=== PATIENT | male | born 1990 | race Caucasian/White ===

== ENCOUNTER 2020-11-30 03:31 | Emergency (ER) | payer BC, OTHER ==
[2020-11-30 03:37] VITALS: BP 145/89; PULSE 81; RESP 18; TEMP 97.9
[2020-11-30] MEDS ORDERED: SULFAMETHOX-TMP 800-160MG 1 EACH TAB PO STA (04:24)
[2020-11-30] MEDS ORDERED: AZITHROMYCIN 500 MG TAB PO STA (04:24)
[2020-11-30] MEDS ORDERED: cefTRIAXone 250 MG VIAL IM STA (04:24)
[2020-11-30] MEDS ORDERED: CIPROFLOXACIN HCL 500 MG TAB PO STA (04:24)
--- NOTE | 2020-11-30 04:26 | ED ---
Skin/Abscess/FB HPI - General Chief complaint: Skin/Abscess/Foreign Body Stated complaint: Wounds on arms Time Seen by Provider: 11/30/20 04:06 Source: patient, RN notes reviewed, old records reviewed Mode of arrival: ambulatory Limitations: no limitations - History of Present Illness MD complaint: rash, abscess/boil -: days(s) Tetanus Up to Date: yes Location: generalized Severity: severe Severity scale (1-10): 10 Quality: stabbing, aching Consistency: constant Improves with: none Worsens with: none Context: recent illness Associated symptoms: fever, chills, rigors Treatments Prior to Arrival: none - Related Data Previous Rx's Medication Instructions Recorded Ciprofloxacin HCl [Cipro] 500 mg PO Q12HR #20 tablet 11/30/20 Sulfamethox-Tmp 800-160Mg [Bactrim 2 tab PO BID #40 tab 11/30/20 DS 800-160 mg] Allergies Allergy/AdvReac Type Severity Reaction Status Date / Time tramadol AdvReac Vomiting Verified 11/30/20 03:37 Review of Systems ROS Statement: Those systems with pertinent positive or pertinent negative responses have been documented in the HPI. ROS Other: All systems not noted in ROS Statement are negative. Past Medical History Past Medical History: No Reported History History of Any Multi-Drug Resistant Organisms: None Reported Past Surgical History: Adenoidectomy, Appendectomy, Ear Surgery, Tonsillectomy Past Psychological History: ADD/ADHD Smoking Status: Current every day smoker Past Alcohol Use History: Occasional General Exam Limitations: no limitations General appearance: alert, in no apparent distress Head exam: Present: atraumatic, normocephalic, normal inspection Eye exam: Present: normal appearance, PERRL, EOMI. Absent: scleral icterus, conjunctival injection, periorbital swelling ENT exam: Present: normal exam, mucous membranes moist Neck exam: Present: normal inspection. Absent: tenderness, meningismus, lymphadenopathy Respiratory exam: Present: normal lung sounds bilaterally. Absent: respiratory distress, wheezes, rales, rhonchi, stridor Cardiovascular Exam: Present: regular rate, normal rhythm, normal heart sounds. Absent: systolic murmur, diastolic murmur, rubs, gallop, clicks GI/Abdominal exam: Present: soft, normal bowel sounds. Absent: distended, tenderness, guarding, rebound, rigid Extremities exam: Present: normal inspection, full ROM, normal capillary refill. Absent: tenderness, pedal edema, joint swelling, calf tenderness Back exam: Present: normal inspection Neurological exam: Present: alert, oriented X3, CN II-XII intact Psychiatric exam: Present: normal affect, normal mood Skin exam: Present: warm, dry, intact, normal color. Absent: rash Course Vital Signs 11/30/20 03:32 Temperature 97.9 F Pulse Rate 81 Respiratory 18 Rate Blood Pressure 145/89 O2 Sat by Pulse 98 Oximetry - Reevaluation(s) Reevaluation #1: Medical record is reviewed Patient symptoms are significantly improved here in the emergency department Patient family informed of results, questions answered Disposition Clinical Impression: Cellulitis, Wound infection Instructions (If sedation given, give patient instructions): Cellulitis (ED) Prescriptions: Sulfamethox-Tmp 800-160Mg [Bactrim DS 800-160 mg] 2 tab PO BID #40 tab Ciprofloxacin HCl [Cipro] 500 mg PO Q12HR #20 tablet Is patient prescribed a controlled substance at d/c from ED?: No Referrals: None,Stated [Primary Care Provider] - 1-2 days
== END 2020-11-30 04:45 ==
LOC: EC 03:31
DX: L03.114 Cellulitis of left upper limb (principal); L03.113 Cellulitis of right upper limb; F90.9 Attention-deficit hyperactivity disorder, unspecified type; F17.200 Nicotine dependence, unspecified, uncomplicated
CPT/HCPCS: 99282; 96372; J0696

== ENCOUNTER 2025-01-22 00:23 | Emergency (ER) | payer BC, OTHER ==
[2025-01-22] MEDS: MORPHINE SULFATE 4 MG/ML SYRINGE IVP STA (01:01)
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
[2025-01-22] MEDS: ONDANSETRON 4 MG/2 ML VIAL IVP STA (01:03)
[2025-01-22 01:34] LABS: INR 0.9 (<1.2); Prothrombin Time 10.2 sec (10.0-12.5)
[2025-01-22 01:40] VITALS: RESP 18
[2025-01-22 01:40] LABS: ALT 30 U/L (4-49); AST 47 U/L (17-59); African American GFR (CKD) >90 (>60 ml/min/1.73 sqM); Albumin 4.5 g/dL (3.5-5.0); Alkaline Phosphatase 121 U/L (38-126); Anion Gap 14 mmol/L; Blood Urea Nitrogen 21 mg/dL (9-20); Calcium 9.4 mg/dL (8.4-10.2); Carbon Dioxide 21 mmol/L (22-30); Chloride 104 mmol/L (98-107); Glucose 131 mg/dL (74-99); Non-African American GFR(CKD) 88 (>60 ml/min/1.73 sqM); Potassium 3.9 mmol/L (3.5-5.1); Sodium 139 mmol/L (137-145); Total Bilirubin 0.5 mg/dL (0.2-1.3); Total Protein 7.2 g/dL (6.3-8.2)
--- NOTE | 2025-01-22 01:50 | CT ---
EXAM: CT Head Without Intravenous Contrast CLINICAL HISTORY: ITS.REASON CT Reason: fall TECHNIQUE: Axial computed tomography images of the head/brain without intravenous contrast. CTDI is 45.2 mGy and DLP is 1088 mGy-cm. This CT exam was performed using one or more of the following dose reduction techniques: automated exposure control, adjustment of the mA and/or kV according to patient size, and/or use of iterative reconstruction technique. COMPARISON: No previous studies. FINDINGS: Brain: Unremarkable. No hemorrhage. No significant white matter disease. No abnormal extra-axial collection is noted. Midline shift: Midline anatomy is unremarkable. Ventricles: Unremarkable. No ventriculomegaly. Bones/joints: Calvarium is unremarkable. No acute fracture. Soft tissues: Unremarkable. Sinuses: Mild to moderate chronic ethmoid and maxillary sinusitis. Mastoid air cells: Partial opacification of mastoid air cells. Other findings: Age appropriate changes. IMPRESSION: 1. Chronic sinusitis. 2. Age-related changes. 3. No acute intracranial pathology. 4. If there is concern for etiology such as early acute lacunar infarcts, MRI imaging of the brain with diffusion-weighted sequences should be performed. EXAM: CT Cervical Spine Without Intravenous Contrast CLINICAL HISTORY: ITS.REASON CT Reason: fall TECHNIQUE: Axial computed tomography images of the cervical spine without intravenous contrast. CTDI is 12.8 mGy and DLP is 323.2 mGy-cm. This CT exam was performed using one or more of the following dose reduction techniques: automated exposure control, adjustment of the mA and/or kV according to patient size, and/or use of iterative reconstruction technique. COMPARISON: No previous studies. FINDINGS: Vertebrae: Cervical and visualized thoracic vertebral bodies are maintained in height. Spinous processes are unremarkable. There is a normal relationship of C1 and C2. Transaxial images of the cervical spine reveals mild posterior facet hypertrophy and disc osteophyte complexes. No acute fracture. Normal alignment of the cervical spine. Discs/spinal canal/neural foramina: Mild to moderate degenerative disc disease, most notably at the C5-6 level. No spinal canal stenosis. Soft tissues: Unremarkable. Lung apices: Minimal scarring is noted at the lung apices. Mild COPD. Paraspinal and regional soft tissues are unremarkable. IMPRESSION: 1. Degenerative disc disease. 2. No acute injury to the cervical spine.
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
[2025-01-22 02:01] LABS: Basophils # (A) 0.06 10*3/uL (0.00-0.10); Basophils % (A) 0.4 %; Eosinophils # (A) 0.06 10*3/uL (0.04-0.35); Eosinophils % (A) 0.4 %; HCT 40.5 % (39.6-50.0); HGB 14.1 g/dL (13.0-17.0); Lymphocytes # (A) 5.35 10*3/uL (0.90-5.00); MCH 30.7 pg (27.0-32.0); MCHC 34.8 g/dL (32.0-37.0); MCV 88.2 fL (80.0-97.0); Mean Platelet Volume 10.7 fL (9.5-12.2); Monocytes # (A) 0.85 10*3/uL (0.20-1.00); Monocytes % (A) 6.3 %; Neutrophils % (A) 52.4 %; Platelet Count 303 10*3/uL (140-440); RBC 4.59 10*6/uL (4.40-5.60); RDW 12.7 % (11.5-14.5); WBC 13.39 10*3/uL (4.50-10.00)
[2025-01-22] MEDS: ACET/COD 300 MG/30 MG STARTER PACK 6 TAB BTL PO STA (02:31)
[2025-01-22] MEDS: KETOROLAC 15 MG/ML 1 ML VIAL IVP STA (02:32)
[2025-01-22 02:44] VITALS: BP 116/82; PULSE 98; TEMP 98.7
[2025-01-22 03:06] LABS: RBC Morphology Normal
== END 2025-01-22 02:44 | disposition home or self-care (01) ==
LOC: EC 00:23
DX: S42.101A Fracture of unspecified part of scapula, right shoulder, initial encounter for closed fracture (principal); F17.200 Nicotine dependence, unspecified, uncomplicated; Z88.6 Allergy status to analgesic agent; W19.XXXA Unspecified fall, initial encounter
CPT/HCPCS: 36415; 80053; 85025; 85610; 85730; 72125; 70450; 71260; 74177; 99284; 96374; 96375 ×2; L3670; J2270; J2405; J1885; Q9967

== ENCOUNTER → 2025-02-07 | Outpatient (CLI) | payer OTHER ==
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
== END | disposition home or self-care (01) ==
LOC: RADCTMAIN 08:19
PROVIDERS: ATTEND Orthopaedic Surgery Sports Medicine
DX: S42.111A Displaced fracture of body of scapula, right shoulder, initial encounter for closed fracture (principal)